=== PATIENT | female | born 1985 | race Caucasian/White ===

== ENCOUNTER 2016-10-02 22:13 | Emergency (ER) | payer BC ==
[~2016-10-02] VITALS: Ht 157.5 cm; Wt 72.6 kg
[2016-10-02 22:28] VITALS: BP 135/78
--- NOTE | 2016-10-02 22:35 | NUR ---
DR GUARDADO AT BEDSIDE FOR EVAL.
[2016-10-02] MEDS ORDERED: TDAP [DIPH/PERTUSSIS/TET] 0.5 ML VIAL IM ONE ×2 (22:36→23:00)
--- NOTE | 2016-10-02 23:07 | NUR ---
3 sutures. wound care provided. Patient discharged to home in stable condition. Written and verbal after care instructions given. Patient verbalizes understanding of instruction.
== END 2016-10-02 23:08 | disposition home or self-care (01) ==
LOC: ER 22:13
DX: S61.012A Laceration without foreign body of left thumb without damage to nail, initial encounter (principal); W26.8XXA Contact with other sharp object(s), not elsewhere classified, initial encounter; Y93.89 Activity, other specified; Y92.89 Other specified places as the place of occurrence of the external cause; Y99.9 Unspecified external cause status
CPT/HCPCS: 12001; 90471; 90715; 99283; A4606; Z7610; J3490